=== PATIENT | female | born 1960 | race Caucasian/White ===

== ENCOUNTER 2023-04-11 14:25 | Outpatient (AMB) | payer OTHER, SELFPAY ==
--- NOTE | 2023-04-11 14:40 | A.OFFVIS_ITS ---
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 She 1st injured her left knee approximately 2 years ago when she fell down several stairs. She twisted her knee and had acute onset of pain. Since that time her symptoms have gotten progressively worse in spite of continued non operative treatments. She has had injections which gave her minimal relief. She has also tried Tylenol and anti-inflammatory medicines which gave her mild relief. She has done physical therapy for 12 weeks over the last 6 months which aggravated her pain. The patient states that her left knee will give out several times per day. Allergies ketorolac [From TORADOL] Allergy (Severe, Unverified 04/09/20 19:33) RESPIRATORY ARREST Medication List - Last Reconciled 04/12/23 by Jaydon Mcguire MD atorvastatin 40 mg PO DAILY buprenorphine ER 8 mg subcut .Qmonth bupropion HCl 300 mg PO DAILY solifenacin 5 mg PO DAILY PFSH Surgical History (Updated 04/11/23 @ 14:55 by ROLAND Galvez) Hx of left knee surgery Social History (Updated 04/11/23 @ 14:46 by ROLAND Galvez) Patient Tobacco Use Status: Former Tobacco user Current occupational status: employed Current occupation: [employer] Physical Exam Vital Signs: BMI result Body Mass Index 31.2 Const Other: Well-nourished well-developed very friendly female awake alert and oriented x3 in no acute distress Extrem Other: Bilateral lower extremity examination shows good capillary refill, no skin lesions noted, normal sensation light touch Left knee examination shows a minimal effusion, minimal crepitus with range of motion, tenderness along her medial joint line, positive Jose's test, no instability Results Reviewed Results Reviewed: X-rays of the patient's left knee show mild to moderate diffuse joint space narrowing, no acute bony abnormalities Assessment & Plan Assessment & Plan (1) Left knee pain: Code(s): M25.562 - Pain in left knee Plan Ms. Aleta Vazquez presents with progressively worsening left knee pain and mechanical symptoms most likely due to a medial meniscus tear. Thus, I will send the patient for an MRI of her left knee for further evaluation. I will see her back once the MRI is completed to discuss the findings and treatment options. Feel free to call me at any time should questions regarding her orthopedic management arise. Thank you very much for asking me to see this very friendly patient. I spent 22 minutes in reviewing the patient's records and imaging studies, seeing the patient and documenting in the medical record. Coding Level of Care Code New Pt Level 2 (31076) Diagnoses Left knee pain M25.562
[2023-04-11 14:41] VITALS: BMI 31.2
== END 2023-04-11 15:00 | disposition home or self-care (01) ==
PROVIDERS: PCP Internal Medicine; Visit Provider Orthopaedic Surgery
DX: M25.562 Pain in left knee (principal)
CPT/HCPCS: 99202

== ENCOUNTER → 2023-04-11 14:25 | Outpatient (BNVA) | payer OTHER, SELFPAY | PROVIDERS: PCP Internal Medicine; Visit Provider Orthopaedic Surgery ==

== ENCOUNTER 2023-12-20 10:25 | Outpatient (AMB) | payer OTHER, SELFPAY ==
[2023-12-20 10:39] VITALS: BP 130/72; PULSE 66; TEMP 36.3; O2SAT 95; BMI 31.8
--- NOTE | 2023-12-20 10:39 | MHC.OFFWIV ---
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 This started this morning while she was at work, and was severe at that time. Since then, it has been a less severe pain, and intermittent. She has a hard time describing the nature of the pain. Denies that it is cramping or stabbing. She denies any associated symptoms. Denies any nausea, vomiting, diarrhea, constipation, urinary symptoms. Denies any new foods or medications. Denies fever, chills, fatigue. States her bowel movements have been normal and soft. History of hernia repair and a sections many years ago. 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- [employer] Review of Systems Const All systems reviewed & are unremarkable except as noted in HPI and below Physical Exam Vital Signs: Last Vital Signs Temp 97.4 F 12/20/23 10:39 Pulse 66 12/20/23 10:39 BP 130/72 12/20/23 10:39 Pulse Ox 95 12/20/23 10:39 Oxygen Delivery Method Room Air 12/20/23 10:39 BMI result Body Mass Index 31.8 Const General: cooperative, healthy appearing, comfortable and no acute distress HEENT Head: Yes normal to inspection Neck Neck: Yes no lymphadenopathy Resp Effort & Inspection: normal respiratory effort Auscultation: clear to auscultation bilaterally Cardio Rate: regular rate Rhythm: regular rhythm GI Inspection: Yes normal to inspection Palpation (GI): Soft to palpation, Tenderness to palpation present (GI) (also mild mid/lower abdominal/pelvic tenderness with palp) in the epigastrum and No hepatosplenomegaly present Auscultation: normal bowel sounds General: Yes no CVA tenderness Back/Spine/Pelvis Back: no CVA tenderness Skin General skin exam: no rashes or lesions noted Extrem General: Yes capillary refill normal and Yes no clubbing, cyanosis or edema Psych Appearance: grossly normal Mental Status: mental status grossly normal Speech and movement: Normal speech and movement present Results AMB Urinalysis, Automated UA Leukoctes 0 Shell/uL Last Edit by Gianna Caldera MA on 12/20/23 11:44 UA Nitrite Negative Last Edit by Gianna Caldera MA on 12/20/23 11:44 UA Urobilinogen 0.2 mg/dL Last Edit by Gianna Caldera MA on 12/20/23 11:44 UA Protein 0 mg/dL Last Edit by Gianna Caldera MA on 12/20/23 11:44 UA pH 6.0 Last Edit by Gianna Caldera MA on 12/20/23 11:44 UA Blood 0 Ignacio/uL Last Edit by Gianna Caldera MA on 12/20/23 11:44 UA Specific [place] 1.010 Last Edit by Gianna Caldera MA on 12/20/23 11:44 UA Ketone Negative Last Edit by Gianna Caldera MA on 12/20/23 11:44 UA Bilirubin 0 mg/dL Last Edit by Gianna Caldera MA on 12/20/23 11:44 UA Glucose 0 mg/dL Last Edit by Gianna Caldera MA on 12/20/23 11:44 Assessment & Plan Assessment & Plan (1) Epigastric abdominal pain: Code(s): R10.13 - Epigastric pain Plan: Patient has what seems to be a resolving both upper and lower mid abdominal pain. On exam, she has some mild tenderness to palpation in these areas. Her exam is otherwise unremarkable. Her urine dip was negative. She states that pain was severe this morning, and seems to have lessened quite a bit. We discussed management of this moving forward. She takes Prilosec daily, which I encouraged she continue to do. She would like to wait and see if this continues to resolve. We discussed that if symptoms persist, worsen, or new symptoms such as fever, chills, fatigue, diarrhea, vomiting occur, she should go to the emergency department for evaluation. She agrees with this plan. She will otherwise follow up here or with her PCP as needed. Coding Level of Care Code Est Pt Level 4 (16239) Diagnoses Epigastric abdominal pain R10.13
== END 2023-12-20 11:46 | disposition home or self-care (01) ==
PROVIDERS: PCP Internal Medicine; Visit Provider Nurse Practitioner Family
DX: R10.13 Epigastric pain (principal)
CPT/HCPCS: 99214